=== PATIENT | female | born 1995 | race Caucasian/White ===

== ENCOUNTER 2017-12-30 22:36 | Emergency (ER) | payer BC ==
[~2017-12-30] VITALS: Ht 157.5 cm; Wt 108.9 kg
[~2017-12-30 22:36] MED LIST: HYDROCODON-ACE1 EAC7 PO; IBUPROFEN 200200 M1; NOHOMEMEDICATIONS
[2017-12-30 23:21] LABS: URINE BILIRUBIN NEGATIVE (Negative); URINE BLOOD 3+ (Negative); URINE CLARITY CLEAR; URINE COLOR YELLOW; URINE GLUCOSE-RANDOM* NEGATIVE (Negative); URINE KETONES NEGATIVE (Negative); URINE LEUKOCYTES-REFLEX NEGATIVE (Negative); URINE NITRITE-REFLEX NEGATIVE (Negative); URINE PROTEIN (DIPSTICK) TRACE (Negative); URINE SPECIFIC GRAVITY >= 1.030 (1.005-1.035); URINE UROBILINOGEN 0.2 E.U./dl (0.2-1.0)
[2017-12-30] MEDS ORDERED: EFFEXOR 5050 MG/1 T1 PO (23:53)
[2017-12-30] MEDS ORDERED: MELATONIN5 M1 PO (23:53)
[2017-12-30] MEDS ORDERED: AMBIEN 5 MG TABL5 M1 PO (23:54)
[2017-12-30] MEDS ORDERED: HYDROXYZINE HCL25 M1 PO (23:54)
[2017-12-30] MEDS ORDERED: ENSKYCE1 EACH PO (23:54)
[2017-12-30 23:59] LABS: ABSOLUTE NEUTROPHILS 6.7 thou/uL (1.4-8.2); BASOPHILS 0.5 % (0.0-2.0); CALCIUM 8.8 mg/dL (8.5-10.1); CREATININE 0.9 mg/dL (0.6-1.0); EOSINOPHILS 0.9 % (0.0-3.0); HEMATOCRIT 38.8 % (37.0-47.0); HEMOGLOBIN 13.2 gm/dL (12.0-15.0); LYMPHOCYTES 39.1 % (24.0-44.0); MCH 31.4 pg (26.0-34.0); MCHC 34.1 g/dL (28.0-37.0); MCV 92.3 fL (80.0-100.0); MONOCYTES 5.2 % (1.0-8.0); PLATELET COUNT 314 thou/uL (150-400); POLYS 54.3 % (36.0-66.0); POTASSIUM 3.2 mmol/L (3.5-5.1); RDW 12.7 % (10.5-14.5); WBC 12.3 thou/uL (4.0-11.0)
[2017-12-31 00:05] LABS: TOTAL BILIRUBIN 0.3 mg/dL (<0.1-1.0); TOTAL PROTEIN 7.2 g/dL (6.4-8.2)
[2017-12-31] MEDS ORDERED: FLOMAX0.4 MG PO (01:20)
[2017-12-31] MEDS ORDERED: TORADOL 10 MG T10 MG PO (01:20)
[2017-12-31] MEDS ORDERED: NORCO 5-325 TA1 EACH PO (01:20)
== END 2017-12-31 02:20 | disposition home or self-care (01) ==
LOC: ER 22:36
PROVIDERS: Emergency Medicine
DX: N20.1 Calculus of ureter (principal); K52.9 Noninfective gastroenteritis and colitis, unspecified; F17.210 Nicotine dependence, cigarettes, uncomplicated; Z88.0 Allergy status to penicillin; Z90.89 Acquired absence of other organs; Z90.10 Acquired absence of unspecified breast and nipple